=== PATIENT | female | born 1985 | race Caucasian/White ===

== ENCOUNTER 2024-05-25 10:25 | Outpatient (CLI) | payer BC, OTHER, SELFPAY ==
[2024-05-25 10:46] LABS: Hematocrit 41.7 % (37.0-47.0); Hemoglobin 13.7 g/dL (12.0-15.0)
--- OUTSIDE RECORDS SUMMARY | 2024-05-25 10:46 | XMS_ITS | Continuity of Care Document ---
Author Organization [facility] Address [address] [address] Care Team Providers Care Fuel Cell Systems Engineer Name Role Phone Reshma Copeland NP Primary Care Physician [phone] Encounter Date(s): 02/07/24 - 02/07/24 [facility] [address], [place] [address] Encounter Diagnosis Chondromalacia(Discharge Diagnosis) - 02/07/24 Discharge Disposition: Home or Self Care Attending Physician: Aldo Drew MD Referring Physician: Aldo Drew MD Allergies, Adverse Reactions, Alerts No Known Allergies Medications diclofenac sodium 75 mg oral delayed release tablet 75 mg 1 tabs, PO, BID, # 60 tabs, 0 Refill(s), Maintenance, Pharmacy: [facility]/pharmacy #[id number], 171.3, cm, 10/21/23 15:30:00 CDT, Height, 72.4, kg, 10/21/23 15:34:00 CDT, Weight Dosing Start Date: 10/26/23 Stop Date: 11/24/23 Status: Completed diclofenac sodium 75 mg oral delayed release tablet 1 tabs, Oral, BID, # 60 tabs, 0 Refill(s), Maintenance, Pharmacy: [facility]/pharmacy #[id number], 171.3, cm, 12/27/23 8:07:00 CDT, Height, 74.8, kg, 12/27/23 8:09:00 CDT, Weight Dosing Start Date: 12/27/23 Status: Ordered DULoxetine 30 mg oral delayed release capsule 30 mg 1 cap, PO, Daily, do not crush or chew, 0 Refill(s), Maintenance Start Date: 10/18/23 Stop Date: 10/21/23 Status: Completed hydrocodone-acetaminophen 5 mg-325 mg oral tablet TAKE 1 TABLET BY MOUTH EVERY 6 HOURS NEEDED FOR ACUTE PAIN LESS THAN 7 DAY SUPPLY Start Date: 11/18/23 Stop Date: 12/27/23 Status: Completed ibuprofen 200 mg oral capsule 400 mg 2 cap, PO, Q4H, PRN as needed for pain, # 120 cap, 0 Refill(s) Start Date: 02/07/24 Status: Ordered Medrol Dosepak 4 mg oral tablet 1 packets, PO, As Directed, as directed on package labeling, # 21 tabs, 0 Refill(s), Maintenance, Pharmacy: [facility]/pharmacy #[id number], 171.3, cm, 12/27/23 8:07:00 CDT, Height, 74.8, kg, 12/27/23 8:09:00 CDT, Weight Dosing Start Date: 12/27/23 Stop Date: 02/07/24 Status: Completed Slynd 4 mg oral tablet 4 mg 1 tabs, Oral, Daily, # 28 tabs, 0 Refill(s), Maintenance Start Date: 10/18/23 Status: Ordered Problem List Condition Confirmation Course Effective Dates Status Health St atus Informant Chiari malformation type I Confirmed Active Tobacco use Confirmed Active Vitamin D deficiency Confirmed Active Procedures Procedure Date Related Diagnosis Body Site Status Arthroscopy of knee with med ial meniscectomy 1 11/15/23 Completed Colonoscopy 2019 Completed Arthroscopy of knee 2008 Com pleted EGD - esophagogastroduodenoscopy Completed 1Left knee 2right knee Vital Signs Most recent to oldest [Reference Range]: 1 Blood Pressure [91-140/90 mmHg] 123/87mm Hg (02/07/24 7:57 AM) Temperature Temporal [36.1-38 Deg C] 36. 2 Deg C (02/07/24 7:57 AM) Peripheral Pulse Rate [50-100 bpm] 85 bp m (02/07/24 7:57 AM) Mean Arterial Pressure, Cuff [65-140 mmH g] 99 mmHg (02/07/24 7:57 AM) Blood Pressure Position Sitting (02/07/24 7:57 AM) BP Site Left arm (02/07/24 7:57 AM) O2 Sat Resting/Exertion Alpha Resting (02/07/24 7:57 AM) Social History Social History Type Response Smoking Status 10 or more cigarette s (1/2 pack or more)/day in last 30 days entered on: 10/21/23 Sex Female Orthopaedic surgery Outpatient Note * Aldo Drew MD: PERFORM Event Display: Orthopedic Office Clinic Note Authored Date: [id number] Date of Service 02/07/2024 Chief Complaint left knee scope 11/15/23. Pain to medial side on occasion, states it usually just tightness and achy. ??Thearpy 2 times a week, continues to have ??trouble going down steps, states weakness. History of Present Illness Patient follow-up 12 weeks post left knee arthroscopy. ??Still have some tightness and soreness. ??Primarily up and down stairs??kneeling or squatting.?? Pain??Primarily to the anterior aspect of theknee.?? Therapy has helped. ??Is doing home exercises now.?? Is not taking diclofenac switched overto ibuprofen.?? Overall is improving. Review of Systems Past medical history, procedures/surgical history, allergies, social history, and family history were reviewed. ??Review of systems has been collected by staff and has been reviewed with the patient in the room. ??Review of systems are within normal limits except for left knee. Physical Exam Vitals & Measurements T:??36.2?C (Temporal)?? HR:??85(Peripheral)?? BP:??123/87?? SpO2:??99%?? HT:??171.3??cm?? WT:??75.4??kg?? WT:??75.400??kg?? BMI:??26?? Patient is alert and oriented x3 and appears their stated age. Patient walks with a??mild antalgic??gait. Left knee mild crepitus??positive Apley grind neurologically motor intact no erythema wounds no gross instability good range of motion minimal effusion Assessment/Plan 1.??Chondromalacia Left knee chondromalacia.?? Continue Profen. ??Continue home exercise. ??Active as tolerated.?? Seeus on as-needed basis. ??No specific restrictions. ??Patient states it is tolerable. Problem List/Past Medical History Ongoing Chiari malformation type I Tobacco use Vitamin D deficiency Historical No qualifying data Procedure/Surgical History ???Arthroscopy of knee with medial meniscectomy (11/15/2023)???Colonoscopy (2019)???Arthroscopy of knee (2008)???EGD - esophagogastroduodenoscopy Medications diclofenac sodium 75 mg oral delayed release tablet, 1 tabs, Oral, BID,?Not taking ibuprofen 200 mg oral capsule, 400 mg= 2 cap, Oral, Q4H, PRN Slynd 4 mg oral tablet, 4 mg= 1 tabs, Oral, Daily Allergies No Known Allergies No Known Medication Allergies Social History Tobacco 10 or more cigarettes (1/2 pack or more)/day in last 30 days, 10/21/2023 Family History Colon cancer: Grandfather (M). Diabetes: Grandmother (M). Hypertension: Father. Disclaimer This document may have been transcribed with voice recognition technology. Errors in spelling, punctuation, or grammar are possible in the color print inspector process. If you see a material mistake or require further clarification, contact my office for further information Electronically Signed on 02/07/24 08:21 CDT Aldo Drew MD Patient Care team information Care Team Personnel Name: Reshma Copeland Position: Provider Referring Member Role: Informed Provider Address: Address: [address] [place] [address]- Care Team Related Persons Name: YASHIRA ANTHONY Address: Home [address] [place], [place] [id number]
--- OUTSIDE RECORDS SUMMARY | 2024-05-25 10:46 | XMS_ITS | Continuity of Care Document ---
Author Organization [facility] Address [address] [address] Care Team Providers Care Crm Campaign Manager Name Role Phone Reshma Copeland NP Primary Care Physician [phone] Encounter Date(s): 11/29/23 - 11/29/23 [facility] [address] [place] [address] Encounter Diagnosis S/P arthroscopy of knee(Discharge Diagnosis) - 11/29/23 Discharge Disposition: Home or Self Care Attending Physician: Aldo Drew MD Referring Physician: Aldo Drew MD Allergies, Adverse Reactions, Alerts No Known Allergies Medications diclofenac sodium 75 mg oral delayed release tablet 75 mg 1 tabs, PO, BID, # 60 tabs, 0 Refill(s), Maintenance, Pharmacy: [facility]/pharmacy #[id number], 171.3, cm, 10/21/23 15:30:00 CDT, Height, 72.4, kg, 10/21/23 15:34:00 CDT, Weight Dosing Start Date: 10/26/23 Stop Date: 11/24/23 Status: Completed diclofenac sodium 75 mg oral delayed release tablet 1 tabs, Oral, BID, # 60 tabs, 0 Refill(s), Maintenance, Pharmacy: [facility] STORE [id number], 171.3, cm, 11/18/23 7:59:00 CDT, Height, 73.4, kg, 11/18/23 8:05:00 CDT, Weight Dosing Start Date: 11/24/23 Status: Ordered DULoxetine 30 mg oral delayed release capsule 30 mg 1 cap, PO, Daily, do not crush or chew, 0 Refill(s), Maintenance Start Date: 10/18/23 Stop Date: 10/21/23 Status: Completed hydrocodone-acetaminophen 5 mg-325 mg oral tablet TAKE 1 TABLET BY MOUTH EVERY 6 HOURS NEEDED FOR ACUTE PAIN LESS THAN 7 DAY SUPPLY Start Date: 11/18/23 Status: Ordered Slynd 4 mg oral tablet 4 mg [...] [Reference Range]: 1 Blood Pressure [91-140/90 mmHg] 129/91mm Hg (11/29/23 7:55 AM) Temperature Temporal [36.1-38 Deg C] 36. 2 Deg C (11/29/23 7:55 AM) Peripheral Pulse Rate [50-100 bpm] 95 bp m (11/29/23 7:55 AM) Mean Arterial Pressure, Cuff [65-140 mmH g] 104 mmHg (11/29/23 7:55 AM) Blood Pressure Position Sitting (11/29/23 7:55 AM) BP Site Left arm (11/29/23 7:55 AM) Social History Social History Type Response Smoking Status 10 or more cigarette s (1/2 pack or more)/day in last 30 days entered on: 10/21/23 Sex Female Orthopaedic surgery Outpatient Note * Aldo Drew MD: PERFORM Event Display: Orthopedic Office Clinic Note Authored Date: [id number] Date of Service 11/29/2023 Chief Complaint s/p Left knee scope 11/15/23. Patient is concerned with her patella. History of Present Illness Patient follow-up 2 weeks post left knee arthroscopy.?? Having some pain irritation. ??Feels the knee Has some instability still.?? Does not fully trust the knee.?? No other complaints no other injury. ??No new trauma. Review of Systems Past medical history, procedures/surgical history, allergies, social history, and family history were reviewed. ??Review of systems has been collected by staff and has been reviewed with the patient in the room. ??Review of systems are within normal limits except for left knee. Physical Exam Vitals & Measurements T:??36.2?C (Temporal)?? HR:??95(Peripheral)?? BP:??129/91?? SpO2:??98%?? HT:??171.3??cm?? WT:??74.600??kg?? WT:??74.6??kg?? BMI:??25?? Patient is alert and oriented x3 and appears their stated age. Patient walks with a??mild antalgic??gait. Left knee??mild effusion wounds clean dry sutures intact no erythema no drainage no gross instability??lacks full range of motion??no significant apprehension positive Apley grind??positive crepitus Assessment/Plan 1.??S/P arthroscopy of knee Left knee arthroscopy. ??Sutures removed Steris applied.?? Restart diclofenac. ??Weightbearing as tolerated.?? Already doing formal??physical therapy exercise help with patellar tracking. ??Return toclinic in 4 weeks. ??Can return to work??as scheduled.?? Hopefully clear completely next follow-up Ordered: Clinic Follow Up ?? Problem List/Past Medical History Ongoing Chiari malformation type I Tobacco use Vitamin D deficiency Historical No qualifying data Procedure/Surgical History ???Arthroscopy of knee with medial meniscectomy (11/15/2023)???Colonoscopy (2019)???Arthroscopy of knee (2008)???EGD - esophagogastroduodenoscopy Medications diclofenac sodium 75 mg oral delayed release tablet, 1 tabs, Oral, BID hydrocodone-acetaminophen 5 mg-325 mg oral tablet Slynd 4 mg oral tablet, 4 mg= [...] punctuation, or grammar are possible in the cribber process. If you see a material mistake or require further clarification, contact my office for further information Electronically Signed on 11/29/23 08:27 CDT Aldo Drew MD Patient Care team information Care Team Personnel Name: Reshma Copeland Position: Provider Referring Member Role: Informed Provider Address: Address: [address] [place] [address] Care Team Related Persons Name: YASHIRA ANTHONY Address: Home [address] [place], [place] [id number]
--- OUTSIDE RECORDS SUMMARY | 2024-05-25 10:46 | XMS_ITS | Continuity of Care Document ---
Author Organization [facility] Address [address] [address] Care Team Providers Care Certified Financial Planner Name Role Phone Dinorah MARTINEZ, Reshma Primary Care Physician [phone] Encounter Date(s): 11/18/23 - 11/18/23 [facility] [address] [place], [place] [address] Discharge Disposition: Home or Self Care Attending Physician: Aldo Drew MD Referring Physician: Aldo Drew MD Allergies, Adverse Reactions, Alerts No Known Allergies Medications diclofenac sodium 75 mg oral delayed release tablet 75 mg 1 tabs, PO, BID, # 60 tabs, 0 Refill(s), Maintenance, Pharmacy: [facility]/pharmacy #[id number], 171.3, cm, 10/21/23 15:30:00 CDT, Height, 72.4, kg, 10/21/23 15:34:00 CDT, Weight Dosing Start Date: 10/26/23 Status: Ordered DULoxetine 30 mg oral delayed [...] Procedure Date Related Diagnosis Body Site Status Colonoscopy 2019 Completed Arthroscopy of knee 2008 Com pleted Arthroscopy of knee with med ial meniscectomy Completed EGD - esophagogastroduodenoscopy Completed 1right knee Social History Social History Type Response Smoking Status 10 or more cigarette s (1/2 pack or more)/day in last 30 days entered on: 10/21/23 Sex Female Note * Екатерина Larson: PERFORM Event Display: Purse Seining Hand Note Authored Date: [id number] Pt seen for 1x visit today for instruction in HEP for the L knee following arthroscopic procedure.?? Pt was instructed to perform all exercises to her tolerance as she does not have to push herself in to a lot of pain.?? Pt was instructed heel slides, quad sets, hamstring stretch, calf stretch withtowel, SLR and LAQ.?? She voiced understanding for proper performance.?? She was advised to call with any questions prior to follow-up. Electronically Signed on 11/18/23 08:51 CDT Екатерина Larson Patient Care team information Care Team Personnel Name: Reshma Copeland Position: Provider Referring Member Role: Informed Provider Address: Address: [address] [place] [address] Care Team Related Persons Name: YASHIRA ANTHONY Address: Home [address] [place], [place] [id number] Name: YASHIRA ANTHONY Address: Home [address] [place], [place] [id number]
--- OUTSIDE RECORDS SUMMARY | 2024-05-25 10:46 | XMS_ITS | Continuity of Care Document ---
Author Organization [facility] Address [address] [address] Care Team Providers Care Nurse Receptionist Name Role Phone Dinorah MARTINEZ, Reshma Primary Care Physician Encounter Date(s): 11/18/23 - 11/18/23 [facility] [address] [place] [address] Encounter Diagnosis Status post arthroscopy of left knee(Discharge Diagnosis) - 11/18/23 Discharge Disposition: Home or Self Care Attending Physician: DAVID Echeverria Referring Physician: Aldo Drew MD Allergies, Adverse Reactions, Alerts No Known Allergies Medications diclofenac sodium 75 mg oral delayed release tablet 75 mg 1 tabs, PO, BID, # 60 tabs, 0 Refill(s), Maintenance, Pharmacy: [facility]/pharmacy #[id number], 171.3, cm, 10/21/23 15:30:00 CDT, [...] Completed EGD - esophagogastroduodenoscopy Completed 1right knee Vital Signs Most recent to oldest [Reference Range]: 1 Blood Pressure [91-140/90 mmHg] 139/89mm Hg (11/18/23 7:59 AM) Temperature Temporal [36.1-38 Deg C] 37. 0 Deg C (11/18/23 7:59 AM) Peripheral Pulse Rate [50-100 bpm] 94 bp m (11/18/23 7:59 AM) Mean Arterial Pressure, Cuff [65-140 mmH g] 106 mmHg (11/18/23 7:59 AM) Social History Social History Type Response Smoking Status 10 or more cigarette s (1/2 pack or more)/day in last 30 days entered on: 10/21/23 Sex Female Orthopaedic surgery Outpatient Note * DAVID Echeverria: PERFORM Event Display: Orthopedic Office Clinic Note Authored Date: [id number] Date of Service 11/18/2023 Chief Complaint Dressing change. S/p left knee arthroscopy that was done on 11/15/23. She is 3 days post op. She is taking [place] as needed. She is doing well. History of Present Illness This is a very pleasant 38-year-old female that comes in the clinic today??3 days status post??leftknee arthroscopy,??chondroplasty done on 11/15/[address] Drew. ??Overall, she is doing very well. ??She is taking [place] as needed??for pain control. ??She denies any fevers, chills, paresthesias, or any other systemic complaints. Review of Systems The medical, surgical, family, and social histories were reviewed.?? Review of systems is negative,except as mentioned in the HPI. Physical Exam Vitals & Measurements T:??37.0?C (Temporal)?? HR:??94(Peripheral)?? BP:??139/89?? SpO2:??99%?? HT:??171.3??cm?? WT:??73.4??kg?? WT:??73.400??kg?? BMI:??25?? Height: 171.3 cm (11/18/23) Weight Measured: 73.4 kg (11/18/23) Systolic Blood Pressure: 139 mmHg (11/18/23) Diastolic Blood Pressure: 89 mmHg (11/18/23) Peripheral Pulse Rate: 94 bpm (11/18/23) ?? Patient presents post op day??3 after undergoing??left knee arthroscopy, chondroplasty by Dr. Drew.?Bulky dressing removed at this time.?Incision appears??well-approximated, sutures intact, with no active drainage.?Incision cleaned with??peroxide and??Band-Aids applied.?Patient negative for any signs or symptoms of DVT or infection.?Patient provided with post-operative instruction sheet and verbalizes understanding.?Patient instructed to call clinic with any questions or concerns. ?? Assessment/Plan 1.??Status post arthroscopy of left knee The patient was given postoperative instructions and verbalized understanding. ??She was also instructed on a home exercise program and verbalized understanding. ??She has a brace to schedule follow-up appointment for suture removal on 11/30/2023 and is aware that appointment. ??Overall, she is happy with how she is doing.?? I have answered all of her questions to her satisfaction, she voiced no further concerns or questions at this time. ??She will follow-up as previously scheduled, and call the clinic with any concerns or questions in the meantime. Ordered: Follow up ?? Problem List/Past Medical History Ongoing Chiari malformation type I Tobacco use Vitamin D deficiency Historical No qualifying data Procedure/Surgical History ???Colonoscopy (2019)???Arthroscopy of knee (2008)???Arthroscopy of knee with medial meniscectomy???EGD - esophagogastroduodenoscopy Medications diclofenac sodium 75 mg oral delayed release tablet, 75 mg= 1 tabs, Oral, BID hydrocodone-acetaminophen 5 mg-325 [...] punctuation, or grammar are possible in the fitness/wellness director process. If you see a material mistake or require further clarification, contact my office for further information Electronically Signed on 11/18/23 09:08 CDT DAVID Echeverria Patient Care team information Care Team Personnel Name: Reshma Copeland Position: Provider Referring Member Role: Informed Provider Address: Address: [address] [place] [address] Care Team Related Persons Name: YASHIRA ANTHONY Address: Home [address] [place], [place] [id number] Name: YASHIRA ANTHONY Address: Home [address] [place], [place] [id number]
--- OUTSIDE RECORDS SUMMARY | 2024-05-25 10:46 | XMS_ITS | Continuity of Care Document ---
Author Organization [facility] Address [address] [address] Care Team Providers Care Ornamental Rail Installer Name Role Phone Reshma Copeland NP Primary Care Physician Encounter Date(s): 12/27/23 - 12/27/23 [facility] [address], [place] [address] Encounter Diagnosis S/P arthroscopy of knee(Discharge Diagnosis) - 12/27/23 Discharge Disposition: Home or Self Care Attending Physician: Aldo Drew MD Referring Physician: Aldo Drew MD Allergies, Adverse Reactions, Alerts No Known Allergies Medications diclofenac sodium 75 mg oral delayed release tablet 75 mg 1 tabs, PO, BID, # 60 tabs, 0 Refill(s), Maintenance, Pharmacy: [facility]/pharmacy #[id number], 171.3, cm, 10/21/23 15:30:00 CDT, Height, 72.4, kg, 10/21/23 15:34:00 CDT, Weight Dosing Start Date: 10/26/23 Stop Date: 11/24/23 Status: Completed diclofenac sodium 75 mg oral delayed release tablet 1 tabs, Oral, BID, # 60 tabs, 0 Refill(s), Maintenance, Pharmacy: [facility]/pharmacy #[id number], 171.3, cm, 12/27/23 8:07:00 CDT, Height, [...] Date: 11/18/23 Stop Date: 12/27/23 Status: Completed Medrol Dosepak 4 mg oral tablet 1 packets, PO, As Directed, as directed on package labeling, # 21 tabs, 0 Refill(s), Maintenance, Pharmacy: [facility]/pharmacy #[id number], 171.3, cm, 12/27/23 8:07:00 CDT, Height, 74.8, kg, 12/27/23 8:09:00 CDT, Weight Dosing Start Date: 12/27/23 Stop Date: 01/02/24 Status: Ordered Slynd 4 mg oral tablet [...] [Reference Range]: 1 Blood Pressure [91-140/90 mmHg] 112/79mm Hg (12/27/23 8:07 AM) Temperature Temporal [36.1-38 Deg C] 36. 9 Deg C (12/27/23 8:07 AM) Peripheral Pulse Rate [50-100 bpm] 71 bp m (12/27/23 8:07 AM) Mean Arterial Pressure, Cuff [65-140 mmH g] 90 mmHg (12/27/23 8:07 AM) Blood Pressure Position Sitting (12/27/23 8:07 AM) BP Site Left arm (12/27/23 8:07 AM) O2 Sat Resting/Exertion Alpha Resting (12/27/23 8:07 AM) Social History Social History Type Response Smoking Status 10 or more cigarette s (1/2 pack or more)/day in last 30 days entered on: 10/21/23 Sex Female Orthopaedic surgery Outpatient Note * Aldo Drew MD: PERFORM Event Display: Orthopedic Office Clinic Note Authored Date: [id number] Date of Service 12/27/2023 Chief Complaint s/p Left knee scope 11/15/23. ??Doing physical therapy 2 times a week. ??Still having medial knee pain with walking and stairs. Still concerned with patella pain as well. Taking diclofenac. History of Present Illness Patient following up with??left knee arthroscopy 6 weeks out.?? Having some pain irritation at workmild swelling and soreness stiffness.?? Diclofenac is helping. ??Therapy is helping.?? Still concerned about the knee. ??No other complaints no other injuries. Review of Systems Past medical history, procedures/surgical history, allergies, social history, and family history were reviewed. ??Review of systems has been collected by staff and has been reviewed with the patient in the room. ??Review of systems are within normal limits except for left knee. Physical Exam Vitals & Measurements T:??36.9?C (Temporal)?? HR:??71(Peripheral)?? BP:??112/79?? SpO2:??99%?? HT:??171.3??cm?? WT:??74.800??kg?? WT:??74.8??kg?? BMI:??25?? Patient is alert and oriented x3 and appears their stated age. Patient walks with a??mild antalgic??gait. Left knee mild swelling some crepitus neurologically motor intact no gross instability??no erythemano wounds Assessment/Plan 1.??S/P arthroscopy of knee Postop left knee arthroscopy still with some pain irritation.?? Hard time at work. ??Hold off work for 2 more weeks and then back to full activity. ??Return to clinic in 6 weeks. ??Continue diclofenac. ??Add a Medrol Dosepak. ??Continue exercise.?? Hopefully continue resolve with current intervention. ??If no better in 6 weeks may require second opinion or further workup Ordered: Medrol Dosepak 4 mg oral tablet, 1 packets, PO , As Directed, as directed on package labeling, # 21tabs, 0 Refill(s), Maintenance, Pharmacy: [facility]/pharmacy #[id number], 171.3, cm, 12/27/23 8:07:00 CDT, Height, 74.8, kg, 12/27/23 8:09:00 CDT, Weight Dosing Clinic Follow Up ?? Orders: diclofenac sodium 75 mg oral delayed release tablet, 1 tabs, Oral, BID, # 60 tabs, 0 Refill(s), Maintenance, Pharmacy: [facility]/pharmacy #[id number], 171.3, cm, 12/27/23 8:07:00 CDT, Height, 74.8, kg, 12/27/23 8:09:00 CDT, Weight Dosing Problem List/Past Medical History Ongoing Chiari malformation type I Tobacco use Vitamin D deficiency Historical No qualifying data Procedure/Surgical History ???Arthroscopy of knee with medial meniscectomy (11/15/2023)???Colonoscopy (2019)???Arthroscopy of knee (2008)???EGD - esophagogastroduodenoscopy Medications diclofenac sodium 75 mg oral delayed release tablet, 1 tabs, Oral, BID Medrol Dosepak 4 mg oral tablet, 1 packets, Oral, As Directed Slynd 4 mg oral tablet, 4 mg= [...] punctuation, or grammar are possible in the scientific aide process. If you see a material mistake or require further clarification, contact my office for further information Electronically Signed on 12/27/23 08:20 CDT Aldo Drew MD Patient Care team information Care Team Personnel Name: Reshma Copeland Position: Provider Referring Member Role: Informed Provider Address: Address: [address] [place] [id number]- Care Team Related Persons Name: YASHIRA ANTHONY Address: Home [address] [place], [place] [id number]
--- OUTSIDE RECORDS SUMMARY | 2024-05-25 10:46 | XMS_ITS | Continuity of Care Document ---
Author Organization [facility] Address [address] [address] [place] [address] Care Team Providers Care Compliance Examiner Name Role Phone Dinorah MARTINEZ, Reshma Primary Care Physician Encounter Date(s): 10/21/23 - 10/21/23 [facility] [address] [place] [address]- Encounter Diagnosis Left knee pain(Discharge Diagnosis) - 10/21/23 Positive Julio test of left knee(Discharge Diagnosis) - 10/21/23 Discharge Disposition: Home or Self Care Attending Physician: DAVID Echeverria Referring Physician: Heath Paulino MD Allergies, Adverse Reactions, Alerts No Known Allergies Assessment and Plan Future Scheduled Tests Radiology* MRI Knee w/o Contrast Left 10/26/23 Medications DULoxetine 30 mg oral delayed release capsule 30 mg 1 cap, PO, Daily, do not crush or chew, 0 Refill(s), Maintenance Start Date: 10/18/23 Stop Date: 10/21/23 Status: Completed Slynd 4 mg oral tablet [...] 2008 Com pleted EGD - esophagogastroduodenoscopy Completed 1right knee Vital Signs Most recent to oldest [Reference Range]: 1 Blood Pressure [91-140/90 mmHg] 129/92mm Hg (10/21/23 3:30 PM) Temperature Tympanic [36.1-38 Deg C] 36. 2 Deg C (10/21/23 3:30 PM) Peripheral Pulse Rate [50-100 bpm] 104 b pm *HI* (10/21/23 3:30 PM) Mean Arterial Pressure, Cuff [65-140 mmH g] 104 mmHg (10/21/23 3:30 PM) Blood Pressure Position Sitting (10/21/23 3:30 PM) BP Site Left arm (10/21/23 3:30 PM) Social History Social History Type Response Smoking Status 10 or more cigarette s (1/2 pack or more)/day in last 30 days entered on: 10/21/23 Sex Female Orthopaedic surgery Outpatient Note * DAVID Echeverria: PERFORM Event Display: Orthopedic Office Clinic Note Authored Date: [id number] Date of Service 10/21/2023 Chief Complaint Left knee pain/swelling. Has been going on for about 2.5 months. No injury that she can recall. Hastried prednisone pack, meloxicam with no relief. Takes ibuprofen as needed. ??Pain worse with movement. Feels unstable, pops, james, wants to give out. History of Present Illness This is a very pleasant 38-year-old female that comes in the clinic today for left knee complaint. ??She states that she noticed left knee pain and swelling for approximately the last 2-1/2 months.??She does not recall any injury.?? She has tried a Medrol Dosepak, meloxicam, compression sleeve,??ibuprofen, and is currently doing formal physical therapy twice a week which she has been doing for the past several weeks. ??She states that none of those interventions seem to be helping.?? She states that??she has pain with weightbearing activities,??and flexion especially. ??She states the knee feels unstable, pops, james, and she does not trust the knee. ??She states that it feels like it is wants to give out on her. Review of Systems The medical, surgical, family, and social histories were reviewed. Constitutional:??No fevers, chills, or sweats Eye:??No recent visual problems ENMT:??No ear pain, nasal congestion or sore throat Respiratory:??No shortness of breath or cough Cardiovascular:??No Chest pain, palpitations or syncope Gastrointestinal:??No nausea, vomiting or diarrhea Genitourinary:??No hematuria [place]/Lymph:??Negative for bruising tendency or swollen lymph glands Endocrine:??Negative for excessive thirst or excessive hunger Musculoskeletal:??No back pain, neck pain, ??muscle pain or decreased range of motion. ??Positive for left knee pain. Integumentary:??No rash, pruritus or abrasions Neurologic:??Alert & oriented X 4 Psychiatric:??No anxiety or depression ?? Physical Exam Vitals & Measurements T:??36.2?C (Tympanic)?? HR:??104(Peripheral)?? BP:??129/92?? SpO2:??98%?? HT:??171.3??cm?? WT:??72.4??kg?? WT:??72.400??kg?? BMI:??25?? General:??Well nourished, no acute distress. ??Vital signs are reviewed. Eye:??PERRL, EOMI, normal conjunctiva, no scleral icterus. HENT:??Normocephalic, normal hearing to voice, moist oral mucosa Musculoskeletal:??Motor strength 5/5 all extremties and no instability. ??The patient is able to actively extend the knee to 0 degrees and flex the knee to 100 degrees, however, she has increased pain with deep flexion past 90 degrees. ??No significant instability is noted with varus or valgus stress. ??She has a positive varus Julio exam, and negative valgus Julio exam. ??She has a negative Sole and negative drawer exam. ??She does have a moderate joint effusion of the left knee as compared to the right. ??She has 2+ pedal pulses bilaterally, she denies numbness and tingling, her neurovascular status is intact distally. Skin:??Skin is warm, dry and pink with good turgor. ??There are no rashes or lesions. Neurologic:??CN II-XII intact. ??Sensation is intact to light touch. Psychiatric:??Awake, alert, and oriented X3, Cooperative, appropriate mood and affect. ??Judgement intact. Assessment/Plan 1.??Left knee pain Ordered: MRI Knee w/o Contrast Left ?? 2.??Positive Julio test of left knee 4 views of the left knee were obtained by her PCP and reviewed by myself today. ??X-rays show excellent maintained joint space in the medial, lateral, patellofemoral compartment.?? At this point, thepatient has??failed all conservative measures including??oral steroids, prescription strength nonste roidal anti-inflammatories,??formal physical therapy,??and a home exercise program. ??It would be my recommendation??to obtain an MRI of her left knee??for further evaluation of medial meniscal pathology. ??Meniscal etiology was discussed with the patient and she verbalized understanding.?? I highly suspect that she does have a medial meniscus tear based off of her exam and her subjective findings. ??She is agreeable with my treatment plan recommendations. ??I answered all her questions to her satisfaction, she voiced no further concerns or questions at this time. ??She will call the clinic with any concerns or questions in the meantime, otherwise I will call her with her MRI results and todiscuss further treatment options. Ordered: MRI Knee w/o Contrast Left ?? Problem List/Past Medical History Ongoing Chiari malformation type I Tobacco use Vitamin D deficiency Historical No qualifying data Procedure/Surgical History ???Colonoscopy (2019)???Arthroscopy of knee (2008)???EGD - esophagogastroduodenoscopy Medications Slynd 4 mg oral tablet, 4 mg= [...] punctuation, or grammar are possible in the capsule filling machine operator process. If you see a material mistake or require further clarification, contact my office for further information Electronically Signed on 10/21/23 16:16 CDT Dnoya A Sixto, FAST FOOD CASHIER Patient Care team information Care Team Personnel Name: Reshma Copeland Position: Provider Referring Member Role: Primary Care Physician Address: Address: [address] [place] [address]- Care Team Related Persons Name: GABRIELLEYASHIRA Address: Home [address] [place], [place] [id number]
--- OUTSIDE RECORDS SUMMARY | 2024-05-25 10:46 | XMS_ITS | Continuity of Care Document ---
Author Organization [facility] Address [address] [address] [place] [address] Care Team Providers Care Intensive Care Unit Nurse Name Role Phone Dinorah MARTINEZ, Reshma Primary Care Physician Encounter Date(s): 11/15/23 - 11/15/23 [facility] [address] [place] [address] Discharge Disposition: Home or Self Care Attending Physician: Aldo Drew MD Referring Physician: Aldo Drew MD Allergies, Adverse Reactions, Alerts No Known Allergies Medications diclofenac sodium 75 mg oral delayed release tablet 75 mg 1 tabs, PO, BID, # 60 tabs, 0 Refill(s), Maintenance, Pharmacy: [facility]/pharmacy #[id number], 171.3, cm, 10/21/23 15:30:00 CDT, Height, [...] pleted EGD - esophagogastroduodenoscopy Completed 1right knee Social History Social History Type Response Smoking Status 10 or more cigarette s (1/2 pack or more)/day in last 30 days entered on: 10/21/23 Sex Female Patient Care team information Care Team Personnel Name: Reshma Copeland Position: Provider Referring Member Role: Informed Provider Address: Address: [address] [place] [address] Care Team Related Persons Name: YASHIRA ANTHONY Address: Home [address] [place], [place] [id number] Name: YASHIRA ANTHONY Address: Home [address] [place], [place] [id number]
--- OUTSIDE RECORDS SUMMARY | 2024-05-25 10:46 | XMS_ITS | Continuity of Care Document ---
Author Organization [facility] Address [address] [address] Care Team Providers Care Supervisor Assembly Stock Name Role Phone Dinorah MARTINEZ, Reshma Primary Care Physician Encounter Date(s): 03/28/24 - 03/28/24 [facility] [address] [place], [place] [address] Encounter Diagnosis Chondromalacia, left knee(Discharge Diagnosis) - 03/28/24 Discharge Disposition: Home or Self Care Attending Physician: DAVID Echeverria Referring Physician: DAVID Echeverria Allergies, Adverse Reactions, Alerts No Known Allergies Medications diclofenac sodium 75 mg oral delayed release tablet 75 mg 1 tabs, PO, BID, # 60 tabs, 0 Refill(s), Maintenance, Pharmacy: [facility]/pharmacy #[id number], 171.3, cm, 10/21/23 15:30:00 CDT, Height, 72.4, kg, 10/21/23 15:34:00 CDT, Weight Dosing Start Date: 10/26/23 Stop Date: 11/24/23 Status: Completed DULoxetine 30 mg oral delayed release capsule [...] # 21 tabs, 0 Refill(s), Maintenance, [id number], 171.3, cm, 12/27/23 8:07:00 CDT, Height, 74.8, kg, 12/27/23 8:09:00 CDT, Weight Dosing Start Date: 12/27/23 Stop Date: 02/07/24 Status: Completed Medrol Dosepak 4 mg oral tablet 1 packets, PO, As Directed, as directed on package labeling, # 21 tabs, 0 Refill(s), Maintenance, [id number], 171.3, cm, 03/28/24 8:07:00 CDT, Height, 74.2, kg, 03/28/24 8:12:00 CDT, Weight Dosing Start Date: 03/28/24 Stop Date: 04/03/24 Status: Ordered Slynd 4 mg oral tablet [...] [Reference Range]: 1 Blood Pressure [91-140/90 mmHg] 13/10mmH g *<LLOW* (03/28/24 8:07 AM) Peripheral Pulse Rate [50-100 bpm] 96 bp m (03/28/24 8:07 AM) Mean Arterial Pressure, Cuff [65-140 mmH g] 11 mmHg *<LLOW* (03/28/24 8:07 AM) Blood Pressure Position Sitting (03/28/24 8:07 AM) BP Site Left arm (03/28/24 8:07 AM) Social History Social History Type Response Smoking Status 10 or more cigarette s (1/2 pack or more)/day in last 30 days entered on: 10/21/23 Sex Female Orthopaedic surgery Outpatient Note * DAVID Echeverria: PERFORM Event Display: Orthopedic Office Clinic Note Authored Date: [id number] Date of Service 03/28/2024 Chief Complaint s/p Left knee scope 11/15/23. Medial pain. History of Present Illness This is a very pleasant 38-year-old female that comes in the clinic today??with complaints of??leftknee medial pain. ??She underwent a knee??arthroscopy on 11/15/[address] Drew??with a partial medial meniscectomy chondroplasty.?? She states that she continues to??have pain primarily to the medial aspect and posterior aspect of the knee.?? She takes ibuprofen and does get relief with that, however, it is short-term.?? She has tried??meloxicam and diclofenac in the past with little to no relief in her symptoms.?? She just wants to make sure that she is not doing anything to??worsen??her knee pain. ??She states that??she does a lot at work and sometimes she has flareups??of the knee pain.?? She denies any known??recent injury. Review of Systems The medical, surgical, family, [...] excessive hunger Musculoskeletal:??No back pain, neck pain, muscle pain or decreased range of motion. ??Positive forleft knee pain Integumentary:??No rash, pruritus or abrasions Neurologic:??Alert & oriented X 4 Psychiatric:??No anxiety or depression ?? Physical Exam Vitals & Measurements HR:??96(Peripheral)?? BP:??13/10?? SpO2:??99%?? HT:??171.3??cm?? WT:??74.2??kg?? WT:??74.200??kg?? BMI:??25?? General: [Well nourished, no acute distress. ??Vital signs are reviewed]. Eye: [PERRL, EOMI, normal conjunctiva, no scleral icterus]. HENT: [Normocephalic, normal hearing to voice, moist oral mucosa] Musculoskeletal: [Motor strength 5/5 all extremties and no instability.?? The patient has pain??along the medial joint line with palpation. ??She is able to actively extend the knee to 0 degrees and flex the knee to 95 degrees. ??No significant instability is noted with varus or valgus stress. ??She has some mild crepitus with both flexion and extension.?? She has 2+ pedal pulses, denies numbnessand tingling, and her neurovascular status is intact distally]. Skin: [Skin is warm, dry and pink with good turgor. ??There are no rashes or lesions]. Neurologic: [CN II-XII intact. ??Sensation is intact to light touch]. Psychiatric: [Awake, alert, and oriented X3, Cooperative, appropriate mood and affect. ??Judgement intact]. Assessment/Plan 1.??Chondromalacia, left knee I reviewed??her procedure??pictures with her??and showed her where she has chondromalacia of the medial compartment of the left knee.?? Etiology of chondromalacia was also explained to her.?? At thistime, be my recommendation to add a Medrol Dosepak and have her continue ibuprofen as needed.?? At some point in her lifetime, she will likely need a knee replacement, however,??at 38 years of age,??is a little on the young side to be considering that.?? I recommend that she continue her??normal activities as tolerated,??and notified her that an increase in activity??and weather changes may increase her knee pain.?? She verbalized understanding. ??She is agreeable with my treatment plan recommen dations.?? I also advised her that we could try an injection in the knee??and see if that helps if her knee pain progressively worsens.?? At this time, she is okay with trying the oral steroid as well as the ibuprofen. ??She will??brace her knee as needed as well.?? She is agreeable with my treatment plan recommendations. ??Answered all her questions to her satisfaction, she voices no further concerns or questions at this time. Ordered: Medrol Dosepak 4 mg oral tablet, 1 packets, PO , As Directed, as directed on package labeling, # 21tabs, 0 Refill(s), Maintenance, Pharmacy: [facility]/pharmacy #[id number], 171.3, cm, 03/28/24 8:07:00 CDT, Height, 74.2, kg, 03/28/24 8:12:00 CDT, Weight Dosing ?? Problem List/Past Medical History Ongoing Chiari malformation type I Tobacco use Vitamin D deficiency Historical No qualifying data Procedure/Surgical History ???Arthroscopy of knee with medial meniscectomy (11/15/2023)???Colonoscopy (2019)???Arthroscopy of knee (2008)???EGD - esophagogastroduodenoscopy Medications ibuprofen 200 mg oral capsule, 400 mg= 2 cap, Oral, Q4H, PRN,?Not taking Medrol Dosepak 4 mg oral tablet, 1 [...] punctuation, or grammar are possible in the director of social services process. If you see a material mistake or require further clarification, contact my office for further information Electronically Signed on 03/28/24 08:28 CDT DAVID Echeverria Patient Care team information Care Team Personnel Name: Reshma Copeland Position: Provider Referring Member Role: Informed Provider Address: Address: [address] [place] [id number] Care Team Related Persons Name: YASHIRA ANTHONY Address: Home [address] [place], [place] [id number]
== END 2024-05-25 10:26 | disposition home or self-care (01) ==
LOC: ANHSURGERY 10:34
PROVIDERS: Visit Provider Obstetrics & Gynecology
DX: N92.6 Irregular menstruation, unspecified (principal)
CPT/HCPCS: 36415; 85014; 85018

== ENCOUNTER 2024-05-26 01:27 | Day surgery (SDC) | payer BC, OTHER, SELFPAY ==
[2024-05-16 14:01] VITALS: BMI 25.7
--- NOTE | 2024-05-16 14:24 | PC.NURSE ---
Report to the Outpatient Waiting Room, entrance under the green pavilion located off [facility], at time _0600_AM on date _ Wed05/26/24 . Planned Procedure Time: __0730_AM .? Time changes happen often and if your time is changed the preop area will call you the afternoon before. - You and your visitor will be asked to self-screen and do not enter if you have any COVID symptoms. Please call surgeon if you need to reschedule. - A mask is optional within the hospital at this time. Patients may have clear liquids (water, carbonated beverages, clear teas, apple juice) until 3 hours prior to surgery with a maximum of 20 ounces. - No food from midnight until time of surgery and no smoking. This includes no chewing gum, candy or mints. Take only the following medications with a SIP of water on the morning of surgery: __NONE DO NOT STOP ANY OF YOUR OTHER PRESCRIPTION MEDICATIONS PRIOR TO SURGERY EXCEPT THE FOLLOWING Medications to discontinue per physician VITAMIN D Date to take last dose___05/23/24 Please no make-up, nail irish, hairspray, perfume, deodorant, or body powder the day of surgery.? No jewelry (including any body piercings) or valuables the day of surgery, leave them at home.? Please take a shower or bath the night before, or the morning of, surgery with an antibacterial soap.? Wear comfortable, loose fitting clothing.? - Jewelry must be removed prior to entering the operating room.? Rings and piercings that are not removed may be cut off. - The hospital will not accept responsibility for valuables.? - Please leave all valuables, including medications, at home the day of surgery. If you are going home after surgery, a licensed pick up driver must drive you home.? - NO public transportation without another adult if you receive anesthesia. - We recommend that an adult stay with you for 24 hours following discharge. - We also recommend that you do not drive, make important decision, drink alcoholic beverages, or take any drugs that were not prescribed by your health care provider for at least 24 hours after your discharge time. Follow any additional instructions given to you from your surgeon. Telephone instructions given to _AMELIA and asked if any additional questions and then verbalized understanding. Patient advised to call surgeon office or pre surgery nurse liaison [phone] if any additional questions.
--- NOTE | 2024-05-23 11:47 | PM.IMHP ---
H&P: HPI History of Present Illness Date/Time: 05/23/24 11:47 Chief Complaint: Pelvic pain excessive heavy bleeding Narrative: This is a 38-year-old female admitted for laparoscopic bilateral tubal ligation hysteroscopy dilatation curettage and Alexa ablation. She desires permanent irreversible sterilization. She has been unable to take control pills without help. Risks and benefits of this procedure reviewed including not exclusive of , aspiration pneumonia, bleeding, transfusion, perforation injury to bowel, bladder, ureters, or other internal organs with need for open laparotomy. She received the ACOG handout entitled hysteroscopy as well as dilatation curettage and laparoscopy respectively. She received the Alexa handout. She had all questions answered. She asked to proceed Review of Systems Review of Systems: All systems reviewed & are unremarkable except as noted in HPI and below FORMERLY [facility], [facility] Family History Family History (Updated 03/28/12 @ 08:44 by DOCTOR UNKNOWN) Other Cerebrovascular accident Diabetes mellitus Hypertension Social History Social History Smoking packs per day: 0.25 Smoking cigarettes per day: 5.0 Years smoked: 20 Smoking pack-years: 5.00 Smoking status: Current every day smoker Tobacco type: cigarettes Alcohol intake: never Substance use: never Substance use type: does not use Living arrangements: with family Spiritual care concerns: No Meds Home Medications and Allergies Home Medications ?Medication ?Instructions ?Recorded ?Confirmed ?Type cholecalciferol (vitamin D3) 1,250 1,250 mcg PO HS 05/16/24 05/16/24 History mcg (50,000 unit) capsule drospirenone (contraceptive) 4 mg 4 mg PO HS 05/16/24 05/16/24 History (28) tablet (Slynd) Allergies Allergy/AdvReac Type Severity Reaction Status Date / Time No Known Allergies Allergy Unverified 05/16/24 14:17 Exam Const: General: cooperative, healthy appearing, comfortable and no acute distress Nutritional Appearance: average body habitus Orientation/consciousness: oriented to person, oriented to place and oriented to time HENMT: Head: normal to inspection Resp: Effort & Inspection: normal respiratory effort Cardio: Rate: regular rate Rhythm: regular rhythm Heart sounds: S1 normal heart sound present and S2 normal heart sound present GI: Inspection: normal to inspection Auscultation: normal bowel sounds : External Female Exam: normal external appearance Speculum Exam - Vagina: normal appearance of the vagina Speculum Exam - Cervix: normal appearance of the cervix Bimanual exam- vagina & uterus: enlarged and soft Bimanual Exam- Adnexa, other: normal adnexae Assessment and Plan Assessment and plan (1) Pelvic pain: Code(s): R10.2 - Pelvic and perineal pain Status: Acute (2) Excessive bleeding: Code(s): R58 - Hemorrhage, not elsewhere classified Status: Acute Plan Proceed with laparoscopy/hysteroscopy/dilatation and curettage/Alexa ablation
[2024-05-26] VITALS (8 sets, daily range): BP systolic 108–141; BP diastolic 73–95; PULSE 74–110; RESP 14–18; TEMP 36.1–36.6; O2SAT 98–100; BMI 26.4
--- NOTE | 2024-05-26 00:58 | WPDHPUPDATE1 ---
History and Physical Update Update Date/Time: 05/26/24 00:58 History and Physical has been reviewed, including an updated exam of the patient. There are NO changes in the patient's condition. Risks, benefits, and alternatives have been discussed and questions answered. Patient agrees to proceed with procedure.
[2024-05-26] MEDS: LACTATED RINGERS 1,000 ML 30 ML IV CONT ×2 (06:30→08:22)
[2024-05-26] MEDS: KETOROLAC 15 MG/ML VIAL (*BKC) IV PUSH (06:30)
[2024-05-26] MEDS: ACETAMINOPHEN 500 MG TABLET 1000 MG PO (06:30)
--- NOTE | 2024-05-26 06:54 | WPDANESEPPF ---
Anes - Initial Pre Proc Eval Procedure: Operation Date: 05/26/24 07:30 Proposed Procedures p Laparoscopic Bilateral Salpingectomy, Hysteroscopy with Dilation and Curettage, Alexa Endometrial Ablation - Isaiah Arriaza MD Date/Time: 05/26/24 06:54 Surgeon: Isaiah Arriaza MD Pre Op Diagnosis: Desire Sterilization, Irg Bleeding Patient Data Age: 38 Gender: F Height: 1.68 m Weight: 74.1 kg Allergies Allergy/AdvReac Type Severity Reaction Status Date / Time No Known Allergies Allergy Verified 05/26/24 06:38 Home Medications ?Medication ?Instructions ?Recorded ?Confirmed ?Type cholecalciferol (vitamin D3) 1,250 1,250 mcg PO HS 05/16/24 05/16/24 History mcg (50,000 unit) capsule drospirenone (contraceptive) 4 mg 4 mg PO HS 05/16/24 05/16/24 History (28) tablet (Slynd) hydrocodone 5 mg-acetaminophen 325 1 tablet PO Q4H PRN pain #20 tabs 05/26/24 Rx mg tablet Patient hx anesthesia problems: none Family hx anesthesia problems: none Results Review: All pre-operative results and documents have been reviewed as part of the pre-operative evaluation. [facility] Family History Family History Other Cerebrovascular accident Diabetes mellitus Hypertension Social History Social History Smoking packs per day: 0.25 Smoking cigarettes per day: 5.0 Years smoked: 20 Smoking pack-years: 5.00 Smoking status: Current every day smoker Tobacco type: cigarettes Alcohol intake: never Substance use: never Substance use type: does not use Living arrangements: with family Spiritual care concerns: No Anes - Eval Final PreProcedure Day of Procedure 05/26/24 06:54 Patient weight: overweight Heart: regular rate and rhythm Lungs: clear to auscultation Airway: Mallampati scale class II Neurological: alert and oriented Last oral intake: >/= 8 hours ASA classification: II Emergent: no Anesthetic plan: proceed Anesthesia type and monitoring: general ETT and standard monitoring Results Review: All pre-operative results and documents have been reviewed as part of the pre-operative evaluation. Informed Consent: The patient's anesthetic plan and its attendant risks and benefits were discussed with the patient/family/POA. Questions were solicited and answers provided to the satisfaction of the patient/family/POA.
[2024-05-26 07:13] LABS: BEDSIDEPREGUCG Negative (Negative)
--- NOTE | 2024-05-26 08:09 | W.PM.PROC2 ---
Procedure Note - Detailed Date of Procedure 05/26/24 Pre-op Diagnosis Desire Sterilization, Irg Bleeding Post-op Diagnosis Same Procedure Performed Laparoscopic bilateral salpingectomy/hysteroscopy/ dilatation curettage/ Alexa ablation Surgeon Isaiah Arriaza MD Anesthesia General Indications 38-year-old female with excessive heavy bleeding desires permanent sterilization Findings normal-appearing uterus ovaries and tubes. Small scar tissue left adnexa which was easily brought down with sharp dissection Description of Procedure patient was prepped draped in the normal sterile fashion placed in the dorsal lithotomy position. Under excellent general endotracheal anesthesia weighted speculum placed in posterior fornix vagina. Anterior lip of the cervix grasped with a single-tooth tenaculum. Hutton's cannula inserted to the cervix and attached to the single-tooth. This will be used later for uterine manipulation. The bladder was emptied of clear urine the weighted speculum was removed. The gloves were changed. A supraumbilical incision made the Veress needle passed in the. Abdomen filled with CO2 gas [id number]. The 5mm trocar advanced under direct visualization with the Optiview no injury seen. Patient placed in Trendelenburg and right left lateral quadrant incisions made. 5mm trocars advanced in the abdomen under direct visualization assuring injury. The left fallopian tube was grasped. Which using the 5mm LigaSure and the for sharply dissected away from the ovarian complex up to its uterine origin. This was then clamped burned and cut and passed through the right lower quadrant. Hemostasis was assured. In similar fashion on the right the tube was grasped and using the LigaSure was sharply dissected away from the ovarian complex with the 5mm LigaSure clamping burning and cutting until the S the the base was noted. This was then clamped cut and burned and brought out the right quadrant incision. Hemostasis was assured and photo documentation undertaken. No abnormalities were seen. The appendix appeared within normal limits. The gallbladder looked fairly large but was not inflamed the liver edge was normal. The gas was removed from the abdomen. The trocars removed the incisions closed with 4-0 Monocryl and glue. Attention was turned to the hysteroscopic portion. The uterus sounded to 7cm. Serial dilatation with fragmented dilators performed, followed by passage of the 5mm visualizing hysteroscope using normal saline as visualizing medium. No abnormalities were seen in photo documentation was undertaken. The instruments withdrawn the uterus scraped over the entire 360? removing very minimal amount of tissue. The Alexa instrument was placed at the appropriate settings and burned for 120seconds. This was withdrawn and the weighted speculum was removed. Blood loss was estimated 5cc. All sponge, needle, instrument counts were correct. The patient went recovery in satisfactory condition Estimated Blood Loss 5 Drains No Packing No Pathology Yes ( endometrial curettings) Complications No immediate complications Condition Stable Disposition PACU
[2024-05-26] MEDS: fentaNYL CITRATE INJ (*CRX) 100 MCG/2 ML VIAL 25 MCG IV PUSH ×4 (08:22→08:36)
[2024-05-26] MEDS: oxyCODONE HCL (*CRX) 5 MG TAB IR PO (09:05)
== END 2024-05-26 09:58 | disposition home or self-care (01) ==
PROVIDERS: Visit Provider Obstetrics & Gynecology
PROC: 0UDB8ZZ Extraction of Endometrium, Via Natural or Artificial Opening Endoscopic (ICD-10-PCS; CPT 58558; principal; 2024-05-26 07:30)
DX: Z30.2 Encounter for sterilization (principal); N83.8 Other noninflammatory disorders of ovary, fallopian tube and broad ligament; F17.210 Nicotine dependence, cigarettes, uncomplicated; Z79.891 Long term (current) use of opiate analgesic; Z82.49 Family history of ischemic heart disease and other diseases of the circulatory system
CPT/HCPCS: 58661; 58563; 88302; 88305; A9270; J1100; J1885; J2003; J2250; J2405; J2704; J3010; J7120